=== PATIENT | male | born 1995 | race African-American/Black ===

== ENCOUNTER 2017-05-01 06:31 | Emergency (ER) | payer SELFPAY ==
[~2017-05-01] VITALS: Ht 160 cm; Wt 86.2 kg
[2017-05-01] MEDS ORDERED: ZITHROMAX250 MG PO (07:09)
[2017-05-01] MEDS ORDERED: KETOROLAC TROME10 MG PO (07:09)
--- NOTE | 2017-05-02 17:35 | EKG ---
[facility] [address] [facility] [place] [address] Signed Sinus bradycardia with sinus arrhythmia Otherwise normal ECG No previous ECGs available Confirmed by ZI CABRALES MD ([id number]) on 05/02/2017 5:35:08 PM Electronically Signed By: ZI CABRALES MD 05/02/17 1735 PATIENT NAME: REMY PEREZ RAMÓN Electrocardiogram DATE OF : [birth year] PHYSICIAN: ZI CABRALES MD REPORT #: [id number] REPORT IS CONFIDENTIAL AND NOT TO BE RELEASED WITHOUT AUTHORIZATION
== END 2017-05-01 07:16 | disposition home or self-care (01) ==
LOC: ED 06:31
DX: J40 Bronchitis, not specified as acute or chronic (principal); M94.0 Chondrocostal junction syndrome [Tietze]; K21.9 Gastro-esophageal reflux disease without esophagitis; F17.200 Nicotine dependence, unspecified, uncomplicated
CPT/HCPCS: 93005; 93010; 99283

== ENCOUNTER 2017-08-18 01:50 | Emergency (ER) | payer OTHER ==
[~2017-08-18] VITALS: Ht 160 cm; Wt 86.2 kg
[~2017-08-18 01:50] MED LIST: KETOROLAC TROME10 MG PO; ZITHROMAX250 MG PO
== END 2017-08-18 02:17 | disposition home or self-care (01) ==
LOC: ED 01:50
DX: J06.9 Acute upper respiratory infection, unspecified (principal)
CPT/HCPCS: 99282

== ENCOUNTER 2017-11-13 10:28 | Emergency (ER) | payer OTHER ==
[~2017-11-13] VITALS: Ht 160 cm; Wt 86.2 kg
[2017-11-13] MEDS ORDERED: OMEPRAZOLE20 MG PO (10:58)
== END 2017-11-13 11:14 | disposition home or self-care (01) ==
LOC: ED 10:28
DX: J34.89 Other specified disorders of nose and nasal sinuses (principal); W22.8XXA Striking against or struck by other objects, initial encounter

== ENCOUNTER 2017-12-03 13:57 | Emergency (ER) | payer OTHER ==
[~2017-12-03] VITALS: Ht 162.6 cm; Wt 86.2 kg
[~2017-12-03 13:57] MED LIST changes: +OMEPRAZOLE20 MG PO
[2017-12-03] MEDS ORDERED: VENTOLIN HFA18 GM INH (14:14)
--- NOTE | 2017-12-05 07:20 | EKG ---
[facility] [address] [facility] [place] [address] Signed Sinus bradycardia with sinus arrhythmia Rightward axis Borderline ECG When compared with ECG of 01-MAY-2017 06:36, T wave inversion now evident in Inferior leads Confirmed by ROGERIO LANDA MD ([id number]) on 12/05/2017 7:20:35 AM Electronically Signed By: ROGERIO LANDA MD 12/05/17 0720 PATIENT NAME: REMY PEREZ Electrocardiogram DATE OF : [birth year] PHYSICIAN: ROGERIO LANDA MD REPORT #: [id number] REPORT IS CONFIDENTIAL AND NOT TO BE RELEASED WITHOUT AUTHORIZATION
== END 2017-12-03 16:25 | disposition home or self-care (01) ==
LOC: ED 13:57
DX: R07.89 Other chest pain (principal); K21.9 Gastro-esophageal reflux disease without esophagitis; Z79.899 Other long term (current) drug therapy
CPT/HCPCS: 71045; 80053; 84484; 85025; 93005; 93010; 99284

== ENCOUNTER 2018-02-16 02:41 | Emergency (ER) | payer OTHER ==
[~2018-02-16] VITALS: Ht 162.6 cm; Wt 90.7 kg
[~2018-02-16 02:41] MED LIST changes: +VENTOLIN HFA18 GM INH
[2018-02-16] MEDS ORDERED: OMEPRAZOLE20 MG PO (02:56)
== END 2018-02-16 03:53 | disposition home or self-care (01) ==
LOC: ED 02:41
DX: R11.0 Nausea (principal); R19.7 Diarrhea, unspecified; Z79.899 Other long term (current) drug therapy
CPT/HCPCS: 99282

== ENCOUNTER 2018-04-26 01:44 | Emergency (ER) | payer OTHER ==
[~2018-04-26] VITALS: Ht 160 cm; Wt 88.5 kg
== END 2018-04-26 04:17 | disposition home or self-care (01) ==
LOC: ED 01:44
DX: T14.8XXA Other injury of unspecified body region, initial encounter (principal); K21.9 Gastro-esophageal reflux disease without esophagitis; Z79.899 Other long term (current) drug therapy; V19.9XXA Pedal cyclist (driver) (passenger) injured in unspecified traffic accident, initial encounter
CPT/HCPCS: 73060; 73090; 73110; 99283

== ENCOUNTER 2018-06-01 10:51 | Emergency (ER) | payer OTHER ==
[~2018-06-01] VITALS: Ht 160 cm; Wt 88.5 kg
[2018-06-01] MEDS ORDERED: TESSALON PERLE100 MG PO (11:19)
[2018-06-01] MEDS ORDERED: ZITHROMAX250 MG PO (11:19)
[2018-06-01] MEDS ORDERED: OMEPRAZOLE20 MG PO (11:19)
== END 2018-06-01 11:29 | disposition home or self-care (01) ==
LOC: ED 10:51
DX: J06.9 Acute upper respiratory infection, unspecified (principal); K21.9 Gastro-esophageal reflux disease without esophagitis; Z88.7 Allergy status to serum and vaccine; Z79.899 Other long term (current) drug therapy
CPT/HCPCS: 99283

== ENCOUNTER 2018-10-20 02:51 | Emergency (ER) | payer OTHER ==
[~2018-10-20] VITALS: Ht 162.6 cm; Wt 90.7 kg
[~2018-10-20 02:51] MED LIST changes: +DICYCLOMINE HCL20 MG PO; +TESSALON PERLE100 MG PO
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
== END 2018-10-20 03:24 | disposition home or self-care (01) ==
LOC: ED 02:51
DX: S61.216A Laceration without foreign body of right little finger without damage to nail, initial encounter (principal); W01.198A Fall on same level from slipping, tripping and stumbling with subsequent striking against other object, initial encounter; K21.9 Gastro-esophageal reflux disease without esophagitis; Z88.7 Allergy status to serum and vaccine; Z79.899 Other long term (current) drug therapy
CPT/HCPCS: 99282

== ENCOUNTER 2018-12-31 13:01 | Emergency (ER) | payer OTHER ==
[~2018-12-31] VITALS: Ht 162.6 cm; Wt 90.7 kg
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
== END 2018-12-31 14:10 | disposition left against medical advice (07) ==
LOC: ED 13:01
DX: S89.91XA Unspecified injury of right lower leg, initial encounter (principal)

== ENCOUNTER 2019-01-09 21:09 | Emergency (ER) | payer OTHER ==
[~2019-01-09] VITALS: Ht 160 cm; Wt 96.5 kg
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
[2019-01-10] MEDS ORDERED: ACETAMINOPHEN325 M1 PO (00:30)
== END 2019-01-10 00:44 | disposition home or self-care (01) ==
LOC: ED 21:09
DX: S06.0X0A Concussion without loss of consciousness, initial encounter (principal); B34.9 Viral infection, unspecified; Y04.8XXA Assault by other bodily force, initial encounter; K21.9 Gastro-esophageal reflux disease without esophagitis; J45.909 Unspecified asthma, uncomplicated; Z88.7 Allergy status to serum and vaccine; Z79.899 Other long term (current) drug therapy
CPT/HCPCS: 71045; 80053; 81001; 83605; 85025; 87502; 87880; 99283-25

== ENCOUNTER 2019-05-12 23:55 | Emergency (ER) | payer OTHER ==
[~2019-05-12] VITALS: Ht 160 cm; Wt 90.8 kg
[~2019-05-12 23:55] MED LIST changes: +ACETAMINOPHEN325 M1 PO
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
== END 2019-05-13 00:50 | disposition home or self-care (01) ==
LOC: ED 23:55
DX: S00.83XA Contusion of other part of head, initial encounter (principal); K21.9 Gastro-esophageal reflux disease without esophagitis; Z88.7 Allergy status to serum and vaccine; Z79.899 Other long term (current) drug therapy; Y04.0XXA Assault by unarmed brawl or fight, initial encounter
CPT/HCPCS: 99283

== ENCOUNTER 2022-01-18 12:35 | Emergency (ER) | payer OTHER ==
[~2022-01-18] VITALS: Ht 160 cm; Wt 99.8 kg
[2022-01-18] MEDS ORDERED: PROVENTIL HFA6.7 GM INH (13:12)
--- NOTE | 2022-01-18 13:40 | EKG ---
[facility] [address] [facility] [place] [address] Signed Sinus rhythm with sinus arrhythmia with occasional premature ventricular complexes Otherwise normal ECG When compared with ECG of 03-DEC-2017 14:03, premature ventricular complexes are now present Confirmed by ZI CABRALES MD ([id number]) on 01/18/2022 1:40:37 PM Electronically Signed By: ZI CABRALES MD 01/18/22 1340 PATIENT NAME: REMY PEREZ JR Electrocardiogram DATE OF : [birth year] PHYSICIAN: ZI CABRALES MD REPORT #: [id number] REPORT IS CONFIDENTIAL AND NOT TO BE RELEASED WITHOUT AUTHORIZATION
== END 2022-01-18 13:50 | disposition home or self-care (01) ==
LOC: ED 12:35
DX: J45.909 Unspecified asthma, uncomplicated (principal); B34.9 Viral infection, unspecified; K21.9 Gastro-esophageal reflux disease without esophagitis; Z88.7 Allergy status to serum and vaccine; Z79.899 Other long term (current) drug therapy
CPT/HCPCS: 93005; 93010; 99284-25

== ENCOUNTER 2022-02-09 23:36 | Emergency (ER) | payer OTHER ==
[~2022-02-09] VITALS: Ht 160 cm; Wt 97.0 kg
[~2022-02-09 23:36] MED LIST changes: +PROVENTIL HFA6.7 GM INH
--- OUTSIDE RECORDS SUMMARY | 2022-02-09 23:45 | XMS ---
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 Care History Medical/Surgical 08/06/2018 [facility] - Patient is currently established with [facility]. If patient is seen in the ED during business hours. Please contact CHWs at [facility]. Care Recommendation: This patient has had 5 [...] providing care. E.D. VISIT COUNT (12 MO.) 1 [facility]. 2 [facility]. TOTAL 3 NOTE: Visits indicate total known visits. ED/UCC VISIT TRACKING (12 MO.) 02/09/2022 23:[address] [facility] [place] TYPE: Emergency COMPLAINT: - CHEST TIGHTNESS, SOB 01/18/2022 12:37 [facility] [place] TYPE: Emergency COMPLAINT: - CHEST PAIN, HANDS NUMB, EAR PAIN DIAGNOSES: - Gastro-esophageal reflux disease without esophagitis - Unspecified asthma, uncomplicated - Allergy status to serum and vaccine - Cough, unspecified - Viral infection, unspecified - Other rn long term care (current) drug therapy 04/27/2021 02:34 [facility] TYPE: Emergency COMPLAINT: - fever INPATIENT VISIT TRACKING (12 MO.) No inpatient visits to display in this time frame [email or web address]
--- NOTE | 2022-02-10 11:13 | EKG ---
[facility] [address] [facility] [place] [address] Signed Normal sinus rhythm Normal ECG When compared with ECG of 18-JAN-2022 13:01, premature ventricular complexes are no longer present Confirmed by ROGERIO LANDA MD ([id number]) on 02/10/2022 11:13:23 AM Electronically Signed By: ROGERIO LANDA MD 02/10/22 1113 PATIENT NAME: REMY PEREZ Electrocardiogram DATE OF : [birth year] PHYSICIAN: ROGERIO LANDA MD REPORT #: [id number] REPORT IS CONFIDENTIAL AND NOT TO BE RELEASED WITHOUT AUTHORIZATION
== END 2022-02-10 01:21 | disposition left against medical advice (07) ==
LOC: ED 23:36
DX: Z53.21 Procedure and treatment not carried out due to patient leaving prior to being seen by health care provider (principal)
CPT/HCPCS: 93005; 93010

== ENCOUNTER 2022-09-23 12:56 | Emergency (ER) | payer OTHER ==
[~2022-09-23] VITALS: Ht 160 cm; Wt 96.6 kg
[2022-09-23] MEDS ORDERED: ONDANSETRON ODT8 MG PO (14:00)
[2022-09-23] MEDS ORDERED: OMEPRAZOLE40 MG PO (14:00)
== END 2022-09-23 14:17 | disposition home or self-care (01) ==
LOC: ED 12:56
DX: K21.9 Gastro-esophageal reflux disease without esophagitis (principal); R03.0 Elevated blood-pressure reading, without diagnosis of hypertension; J45.909 Unspecified asthma, uncomplicated; Z88.0 Allergy status to penicillin; Z79.899 Other long term (current) drug therapy
CPT/HCPCS: 36415; 80053; 81003; 85025; 99283

== ENCOUNTER 2024-12-22 10:52 | Emergency (ER) | payer SELFPAY ==
[~2024-12-22] VITALS: Ht 160 cm; Wt 101.4 kg
[~2024-12-22 10:52] MED LIST changes: +CARAFATE1 GM PO; +OMEPRAZOLE40 MG PO; +ONDANSETRON ODT8 MG PO; +PEPCID40 MG PO; +PRILOSEC OTC20 MG PO; +PROMETHAZINE HC25 M1 PO
[2024-12-22] MEDS ORDERED: ALBUTEROL/IPRATROPIUM 3 ML NEB INH ONE (11:15)
[2024-12-22 11:52] LABS: BASOPHILS 0.7 % (0-2); EOSINOPHILS 6.4 % (0-6); HEMATOCRIT 43.3 % (35.0-50.0); HEMOGLOBIN 15.1 g/dL (12.0-18.0); MCH 29.8 (27-36); MCHC 34.8 g/dl (30-36); MCV 85.6 fl (81-99); MONOCYTES 12.2 % (0-12); NEUTROPHILS 55.7 % (39-80); PLATELET COUNT 233 K/uL (140-440); RBC 5.05 M/ul (4.3-5.7); RDW 13.8 (10.5-15.0)
[2024-12-22 12:08] LABS: ALBUMIN 3.2 g/dL (3.4-5.0); ALBUMIN/GLOBULIN RATIO 0.74 (1.1-2.4); ANION GAP 10.6 (7-21); BILIRUBIN, TOTAL 0.5 mg/dL (0.2-1.0); BUN/CREATININE RATIO 10.43 (6.0-28.6); CALCIUM 8.5 mg/dL (8.5-10.1); CREATININE, SERUM 1.15 mg/dL (0.70-1.30); POTASSIUM 3.6 mmol/L (3.5-5.1); PROTEIN, TOTAL 7.5 g/dL (6.4-8.2)
[2024-12-22] MEDS ORDERED: PREDNISONE20 MG PO (12:24)
[2024-12-22] MEDS ORDERED: ALBUTEROL2.5 MG/3 M INH (12:24)
[2024-12-22] MEDS ORDERED: VENTOLIN HFA18 GM INH (12:24)
[2024-12-22 12:37] VITALS: BP 143/84
--- NOTE | 2024-12-22 15:16 | EKG ---
[facility] [address] [place] [address] Signed Sinus tachycardia Rightward axis Borderline ECG When compared with ECG of 09-FEB-2022 23:44, No significant change was found Confirmed by Joo Rankin MD () on 12/22/2024 3:16:09 PM Electronically Signed By: JOO RANKIN MD 12/22/24 1516 PATIENT NAME: REMY PEREZ Electrocardiogram DATE OF : [birth year] PHYSICIAN: JOO RANKIN MD REPORT #: [id number] REPORT IS CONFIDENTIAL AND NOT TO BE RELEASED WITHOUT AUTHORIZATION
== END 2024-12-22 12:37 | disposition home or self-care (01) ==
LOC: ED 10:52
PROVIDERS: Emergency Medicine
DX: J06.9 Acute upper respiratory infection, unspecified (principal); J45.909 Unspecified asthma, uncomplicated; K21.9 Gastro-esophageal reflux disease without esophagitis; Z88.0 Allergy status to penicillin; Z79.899 Other long term (current) drug therapy
CPT/HCPCS: 36415; 71045; 80053; 83605; 85025; 93005; 93010; 94640; 99285-25